=== PATIENT | male | born 1930 | race Caucasian/White ===

== ENCOUNTER → 2018-02-26 | Outpatient (CLI) | payer MEDICARE ==
[~2018-02-26] MED LIST: ASPIR 8181 M1 PO; ASPIRIN EC325 MG PO; Ascorbic Acid,Ester- PO; CENTRUM SILVER1 EAC3 PO; COUMADIN,JANTO1.5 MG PO; DITROPAN5 MG PO; Ditropan PO; Dulcolax PO; ENALAPRIL MALEAT5 MG PO; FOLVITE1 M1 PO; LOPRESSOR25 MG PO; Levaquin PO; METAMUCIL C1 CAPSULE PO; NITROFURANTOIN100 MG PO; OMEPRAZOLE20 MG PO; OXYBUTYNIN CHLOR5 MG PO; OYST-CAL D, OS500 M1 PO; Protonix PO; SENOKOT S,PE1 TABLET PO; SIMVASTATIN40 MG PO; THERAGRAN1 TABLET PO; Tylenol Regular Stre PO; VASOTEC5 M1 PO; VITAMIN C WITH500 M2 PO; VITAMIN E400 UNIT PO; Vitamin B-12 PO; oxyCODONE PO
== END | disposition home or self-care (01) ==
LOC: CDC 09:51
DX: Z01.810 Encounter for preprocedural cardiovascular examination (principal); L72.3 Sebaceous cyst; I49.3 Ventricular premature depolarization; R94.31 Abnormal electrocardiogram [ECG] [EKG]
CPT/HCPCS: 93000